=== PATIENT | female | born 1995 | race American Indian/Alaskan Native ===

== ENCOUNTER 2017-12-26 21:40 | Emergency (ER) | payer MEDICAID ==
[2017-12-26 22:02] VITALS: BMI 25.7
[2017-12-26 22:13] LABS: SQUAMOUS EPITHIAL 23 /hpf (0-5); URINE BACTERIA OCC (<OCC); URINE BILIRUBIN NEGATIVE (NEGATIVE); URINE BLOOD 1+ (NEGATIVE); URINE CLARITY Hazy (Clear); URINE COLOR Yellow (YELLOW); URINE GLUCOSE (UA) NORMAL (Normal); URINE LEUKOCYTE ESTERASE 3+ Leu/uL (Negative); URINE PROTEIN NEGATIVE (NEGATIVE); URINE UROBILINOGEN NORMAL mg/dL (0.2-1.0)
--- NOTE | 2017-12-26 23:45 | OBHP ---
Datetime: 12/26/2017 23:26 IP Adm Impression: , intrauterine ; No Active Labor; Intact Membranes IP Chief Complaint Other: Thick, white vaginal discharge IP Admit Plan: Observation/Evaluation Admit Comment, IP Provider: 22 yo female with an IUP at 27 weeks and here with complaint of thick whittish vaginal discharge with severe itching and burning and for the past week. Denies any i ntercourse for months. Admits to adequate FM and denies LOF or VB. PMHx Negtive PSHx TOP Meds PNV NKDA Social Hx Denies x 3 NST Reactive for GA No uterine contractions and cx closed A/P Severe hiro vulvovaginitis FHT's ressuring for age No Labor No S_S of UTI UA sent Continue Monitoring Pelvic Type - PN: Adequate Extremities - PN: Normal Abdomen - PN: Normal Back - PN: Normal Breast - PN: Not Done Lungs - PN: Normal Heart - PN: Normal Thyroid - PN: Normal Neurologic - PN: Normal HEENT - PN: Normal General - PN: Normal FHR - Baseline A Provider: 150 Membranes, Provider: Intact Contraction Comments Provider: 0 Comments, ACOG Physical Exam: Large amount of + Cottage cheese-like vaginal discharge Vaginal and vulva irritation Gestation - Est Wks by US: 27.0 IP Hx Assessment: No PNC records available EGA AdmitDate IP: 27.0 Vital Signs Provider: Reviewed; Within Normal Limits IP Chief Complaint: Maternal discomfort; Other NICHD Variability Prov Fetus A: Moderate 6-25bpm NICHD Accel Fetus A IP Provider: 10X10 FHR Category Provider Fetus A: Category I NICHD Decel Fetus A IP Provider: None Dilatation, Provider: 0 Effacement, Provider: 0 Station, Provider: Tosha Genitourinary Exam: Normal DTRs - PN: Normal
--- NOTE | 2017-12-26 23:50 | OBDCSUM ---
Datetime: 12/26/2017 23:44 Discharged to, Provider: Home Follow up at, Provider: Clinic Disch Instr Diet: Regular Discharge Instructions, Provider: Routine instructions given Follow up in weeks, Provider: scheduled appointment Disch Activity Restrictions: No exercising; No lifting; Minimize stair-climbing; No sexual activity; Nothing in vagina - [place], tampons, douche Discharge Comment, Provider: 22 yo female with an IUP at 27 weeks and here with complaint o f thick whittish vaginal discharge with severe itching and burning and for the past week. Denies any intercourse for months. Admits to adequate FM and denies LOF or VB. PMHx Negtive PSHx TOP Meds PNV NKDA Social Hx Denies x 3 NST Reactive for GA No uterine contractions and cx closed A/P Severe kary vulvovaginitis FHT's ressuring for age No Labor No S_S of UTI UA sent and Contaminated with vaginal discharge Diflucan 200 mg po given Rx for Diflucan 150 mg po x 2 more doses in 4 and in 7th day Terazol 7 intravaginally at HS x 7 days and at Perineum BID x 1 week Stable D/C home with instructions and Rx's Discharge Diagnosis Prov Other: Kary Vulvovaginitis
[2017-12-27 04:40] VITALS: BP 120/61; PULSE 93
== END 2017-12-27 00:21 | disposition home or self-care (01) ==
LOC: C.EROB 21:40
DX: O98.812 Other maternal infectious and parasitic diseases complicating pregnancy, second trimester (principal); B37.3 Candidiasis of vulva and vagina; Z3A.27 27 weeks gestation of pregnancy

== ENCOUNTER 2018-01-01 19:19 | Emergency (ER) | payer MEDICAID ==
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
[2018-01-02 00:34] VITALS: BP 112/74; PULSE 104; TEMP 99.1
== END 2018-01-01 20:16 | disposition home or self-care (01) ==
LOC: C.EROB 19:19
DX: O26.92 Pregnancy related conditions, unspecified, second trimester (principal); Z3A.27 27 weeks gestation of pregnancy; V49.49XA Driver injured in collision with other motor vehicles in traffic accident, initial encounter; Y92.410 Unspecified street and highway as the place of occurrence of the external cause

== ENCOUNTER 2018-03-19 16:20 | Inpatient (IN) | payer OTHER, MEDICAID | END 2018-03-22 19:59 | disposition home or self-care (01) | LOC: C.EROB 16:20 → C.4D 17:38 → C.4M 03-20 18:00 | PROC: 10907ZC Drainage of Amniotic Fluid, Therapeutic from Products of Conception, Via Natural or Artificial Opening (ICD-10-PCS; 2018-03-20) | PROC: 10E0XZZ Delivery of Products of Conception, External Approach (ICD-10-PCS; principal; 2018-03-21) | PROC: 3E0234Z Introduction of Serum, Toxoid and Vaccine into Muscle, Percutaneous Approach (ICD-10-PCS; 2018-03-21) | DX: O99.02 Anemia complicating childbirth (principal); O75.2 Pyrexia during labor, not elsewhere classified; D64.9 Anemia, unspecified; Z37.0 Single live birth; Z3A.38 38 weeks gestation of pregnancy; O26.893 Other specified pregnancy related conditions, third trimester; Z67.41 Type O blood, Rh negative ==